=== PATIENT | male | born 1975 | race Hispanic/Latino ===

== ENCOUNTER 2019-03-30 07:10 | Emergency (ER) | payer SELFPAY ==
[~2019-03-30] VITALS: Ht 162.6 cm; Wt 70.0 kg
[2019-03-30 10:00] VITALS: BP 148/98
== END 2019-03-30 10:00 | DRG 87 ==
LOC: ED 07:10
DX: S02.19XA Other fracture of base of skull, initial encounter for closed fracture (principal); S02.81XA Fracture of other specified skull and facial bones, right side, initial encounter for closed fracture; S01.21XA Laceration without foreign body of nose, initial encounter; S01.111A Laceration without foreign body of right eyelid and periocular area, initial encounter; S00.01XA Abrasion of scalp, initial encounter; R42 Dizziness and giddiness; Y04.2XXA Assault by strike against or bumped into by another person, initial encounter; Y93.01 Activity, walking, marching and hiking; Y92.414 Local residential or business street as the place of occurrence of the external cause